=== PATIENT | male | born 1990 | race African-American/Black ===

== ENCOUNTER 2018-03-25 20:53 | Emergency (ER) | payer SELFPAY ==
[~2018-03-25] VITALS: Ht 172.7 cm; Wt 104.5 kg
[~2018-03-25 20:53] MED LIST: DICL75 PO; DOXY100T PO; SULF1TAB47 PO
[2018-03-25 21:10] VITALS: BP 173/92; PULSE 99; RESP 16; TEMP 98.6; O2SAT 100
--- NOTE | 2018-03-25 21:21 | PD ---
HPI Chief Complaint: Injury Time Seen by Provider: 21:12 Travel History International Travel<30 days: No Contact w/Intl Traveler<30days: No Traveled to known affect area: No History of Present Illness HPI This is a 27-year-old male who presents to the emergency department with pain when he makes a fist in his left hand focused on the palmar surface of the left hand worse when he closes his hand, intermittent, moderate severity with no associated numbness or tingling. 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 He is left- handed. He denies any injury to the hand. PFSH Past Medical History Medical History: Denies Significant Hx Tetanus Vaccination: < 5 Years Influenza Vaccination: No Past Surgical History Surgical History: No Previous Surgery Social History Alcohol Use: Yes (occaisionally) Tobacco Use: No (high school) Substance Use: No Allergies-Medications (Allergen,Severity, Reaction): Coded Allergies: No Known Drug Allergies (Verified Allergy, Unknown, 03/25/18) Reported Meds & Prescriptions Reported Meds & Active Scripts Active Diclofenac Sodium 75 Mg Tab 75 Mg PO BIDPRN Vibramycin (Doxycycline Hyclate) 100 Mg Cap 1 Tab PO BID 10 Days Bactrim Ds (Trimethoprim/Sulfamethoxazole) Tab 1 Tab PO BID 10 Days Review of Systems General / Constitutional: No: Fever, Chills Gastrointestinal: No: Nausea Physical Exam Narrative GENERAL: Well-appearing, no acute distress, nontoxic SKIN: Warm and dry. HEAD: Atraumatic. Normocephalic. ENT: No nasal bleeding or discharge. Moist mucous membranes Vascular: 2+ left radial pulse with normal capillary refill in the hand. MUSCULOSKELETAL: Pain with making a fist involving the left hand. No obvious deformities. No clubbing. No cyanosis. No edema. NEUROLOGICAL: Awake and alert. No obvious cranial nerve deficits. Motor grossly within normal limits. Normal speech. Sensation and motor grossly intact in the left median, ulnar and radial distributions of the forearm PSYCHIATRIC: Appropriate mood and affect; insight and judgment normal. Data Data Last Documented VS Vital Signs Date Time Temp Pulse Resp B/P (MAP) Pulse Ox O2 Delivery O2 Flow Rate FiO2 03/25/18 21:10 98.6 99 16 173/92 (119) 100 Room Air MDM Medical Decision Making Medical Screen Exam Complete: Yes Emergency Medical Condition: Yes Differential Diagnosis Tendinitis, sprain, strain, arthritis Narrative Course This is a 27-year-old male who presents to the emergency department with pain in his left hand. 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 Pt. likely has tendonitis. He otherwise has a reassuring neurovascular exam. I do not think any imaging is required. Patient will be discharged home with anti-inflammatories Diagnosis Primary Impression: Left hand tendonitis Patient Instructions: General Instructions Departure Forms: Tests/Procedures, Work Release Special Instructions: Mr. Benitez has an injury to his left hand likely related to repetitive movements on machinery at work. If possible he should rest his hand for one to two weeks in order to heal. Additional Instructions: Rest, ice, and Onur wrap your hand. Take anti-inflammatories for pain. Med/Other Pt SpecificInfo: Prescription(s) given Scripts Meloxicam (Meloxicam) 7.5 Mg Tab 7.5 MG PO DAILY for Arthritis Pain for 14 Days, #14 TAB 0 Refills Prov: Dee Spear MD 03/25/18 Disposition: 01 DISCHARGE HOME Condition: Stable Dee Spear MD March 25, 2018 21:21
[2018-03-25] MEDS ORDERED: MELO7.5T27 PO (21:26)
== END 2018-03-25 21:49 | disposition home or self-care (01) ==
LOC: NEPD 20:53
DX: M77.9 Enthesopathy, unspecified (principal)
CPT/HCPCS: 99283